=== PATIENT | female | born 1970 | race Caucasian/White ===

== ENCOUNTER 2018-05-20 23:25 | Emergency (ER) | payer OTHER ==
[2018-05-21] MEDS ORDERED: LIDOCAINE 1% INJ-PF (10 MG/ML) 30 ML SDV INJ ONE (01:55)
[2018-05-21] MEDS ORDERED: CEPHALEXIN 500 MG CAPSULE PO ONE (01:56)
[2018-05-21] MEDS ORDERED: DIPH/PERTUSS(ACELL)/TETANUS VAC/PF 0.5 ML SYR (>=10YO) IM ONE (01:56)
--- NOTE | 2018-05-21 02:21 | ER Document Report ---
ED Hand/Wrist Injury - General Chief Complaint: Hand Injury Stated Complaint: HAND INJURY Time Seen by Provider: 05/21/18 01:43 Notes: Patient is a 48-year-old female comes emergency department for chief complaint of laceration to the palm of the right hand, she was holding a wine glass when she slipped and broke the glass on her hand, she denies any heavy impact on the hand or wrist, denies head injury. She is not up-to-date on her tetanus within 5 years. She denies any other complaints. She declined an x-ray in triage. TRAVEL OUTSIDE OF THE [place] IN LAST 30 DAYS: No - Related Data Allergies/Adverse Reactions: No Known Allergies Allergy (Unverified 05/20/18 23:27) Past Medical History - General Information source: Patient - Social History Smoking Status: Never Smoker Chew tobacco use (# tins/day): No Frequency of alcohol use: Social Drug Abuse: None Lives with: Family Family History: Reviewed & Not Pertinent Patient has suicidal ideation: No Patient has homicidal ideation: No Renal/ Medical History: Denies: Hx Peritoneal Dialysis Surgical Hx: Negative - Immunizations Immunizations up to date: No Hx Diphtheria, Pertussis, Tetanus Vaccination: Yes Review of Systems - Review of Systems Constitutional: No symptoms reported EENT: No symptoms reported Cardiovascular: No symptoms reported Respiratory: No symptoms reported Gastrointestinal: No symptoms reported Genitourinary: No symptoms reported Female Genitourinary: No symptoms reported Musculoskeletal: See HPI Skin: See HPI Hematologic/Lymphatic: No symptoms reported Neurological/Psychological: No symptoms reported Physical Exam - Vital signs Vitals: Temp Pulse Resp BP Pulse Ox 98.8 F 73 20 111/75 98 05/20/18 23:56 05/20/18 23:56 05/20/18 23:56 05/20/18 23:56 05/20/18 23:56 - Notes Notes: GENERAL: Alert, interacts well. No acute distress. HEAD: Normocephalic, atraumatic. EYES: Pupils equal, round, and reactive to light. Extraocular movements intact. ENT: Oral mucosa moist, tongue midline. NECK: Full range of motion. Supple. Trachea midline. LUNGS: Clear to auscultation bilaterally, no wheezes, rales, or rhonchi. No respiratory distress. HEART: Regular rate and rhythm. No murmur ABDOMEN: Soft, non-tender. Non-distended. Bowel sounds present in all 4 quadrants. EXTREMITIES: two 0.5 cm lacerations over the right medial palm, linear but full thickness. Tiny superficial cut over 5th digit fingerpad. Normal range of motion of the hand, normal capillary refill and sensation, normal HEENT exam otherwise, no snuffbox tenderness, unremarkable upper extremity otherwise. BACK: no cervical, thoracic, lumbar midline tenderness. No saddle anesthesia, normal distal neurovascular exam. NEUROLOGICAL: Alert and oriented x3. Normal speech. [cranial nerves II through XII grossly intact]. SKIN: Warm, dry, normal turgor. No rashes or lesions noted. Course - Re-evaluation Re-evalutation: Patient declined x-ray. No evidence of foreign body, explored carefully. Cleaned thoroughly and sutured. Discussed follow-up and return precautions. Patient states understanding and agreement. - Vital Signs Vital signs: Temp Pulse Resp BP Pulse Ox 98.3 F 69 20 113/70 100 05/21/18 03:05 05/21/18 03:05 05/21/18 03:05 05/21/18 03:05 05/21/18 03:05 Procedures - Laceration/Wound Repair Right hand Wound length (cm): 1.5 Wound's Depth, Shape: Irregular Laceration pre-procedure: Sterile PPE donned, Sterile drapes applied, Shur- Clens applied Anesthetic type: 1% Lidocaine Volume Anesthetic (mLs): 3 Wound explored: Clean, No foreign body removed Irrigated w/ Saline (mLs): 50 Wound Repaired With: Sutures Suture Size/Type: 5:0, Nylon Number of Sutures: 6 Post-procedure wound care: Sterile dressing applied Post-procedure NV exam normal: Yes Complications: No Notes: Laceration actually connected and slightly longer than initially anticipated, however this is still only partial thickness, no evidence of tendon involvement or nerve involvement, no large vessel involvement. Explored carefully and no evidence of foreign body. Discharge - Discharge Clinical Impression: Laceration of right palm Qualifiers: Encounter type: initial encounter Qualified Code(s): S61.411A - Laceration without foreign body of right hand, initial encounter Condition: Stable Disposition: HOME, SELF-CARE Additional Instructions: Sutures need to be removed in 7 days. Keep clean, clean with soap and water, dab dry, avoid soaking. Cover with topical antibiotic. Follow-up with primary care. Return for any concerning symptoms including redness, swelling, discolored drainage, or any other concerning symptoms.
[2018-05-21 03:20] VITALS: BP 113/70
== END 2018-05-21 03:15 | disposition home or self-care (01) ==
LOC: ER 23:25
PROC: 0HQFXZZ Repair Right Hand Skin, External Approach (ICD-10-PCS; principal; 2018-05-20)
DX: S61.411A Laceration without foreign body of right hand, initial encounter (principal); W25.XXXA Contact with sharp glass, initial encounter; Z23 Encounter for immunization
CPT/HCPCS: 99283; 90471; 90715; 12001; J3490